=== PATIENT | female | born 1965 | race African-American/Black ===

== ENCOUNTER 2023-03-08 16:59 | Emergency (ER) | payer OTHER, MEDICAID ==
[~2023-03-08] VITALS: Ht 167.6 cm; Wt 96.4 kg
[2023-03-08 16:59] VITALS: BP 133/85
[~2023-03-08 16:59] MED LIST: CLON0.1T PO; LISI20TA56 PO
== END 2023-03-08 18:49 | disposition left against medical advice (07) ==
LOC: ER 16:59 → EDBD 16:59 → ER 18:49
DX: R51.9 Headache, unspecified (principal); Z53.21 Procedure and treatment not carried out due to patient leaving prior to being seen by health care provider
CPT/HCPCS: 93005